=== PATIENT | female | born 1955 | race Caucasian/White ===

== ENCOUNTER 2018-08-27 11:16 | Emergency (ER) | payer BC ==
[2018-08-27 11:26] VITALS: BP 151/78; PULSE 75; TEMP 98.4; BMI 35.7
[2018-08-27] MEDS ORDERED: KETOROLAC TROMETHAMINE 60 MG/2 ML VIAL IM ONE (11:47)
--- NOTE | 2018-08-27 11:47 | PDOC ---
History of Present Illness - General Chief Complaint: Back Pain Stated Complaint: back pain Time Seen by Provider: 08/27/18 11:19 History Source: Patient Exam Limitations: No Limitations - History of Present Illness Initial Comments: 08/27/18 11:34 63 y/o female with right sided back pain that radiates down the right leg. Has been going to her chiropractor 3x this week with no improvement. No weakness or numbness. taking Mortin/Advil with little relief. Worse at night, feels fine during the day. No fall or trauma. No fever, chills, dyauria, hematuria or incontinence. Patient denies chest pain, SOB or leg pain. No weakness. Worse with movement. Started 1 week ago. Timing/Duration: 1 week Severity: mild Past History - Past Medical History Allergies/Adverse Reactions: Allergies Allergy/AdvReac Type Severity Reaction Status Date / Time No Known Allergies Allergy Verified 08/27/18 11:17 Home Medications: Ambulatory Orders Naproxen Sodium [Aleve] 220 mg PO DAILY PRN 11/07/15 Cyclobenzaprine HCl 10 mg PO TID #10 tablet 08/27/18 Anemia: Yes (1997) Asthma: No Cancer: No Cardiac Disorders: No CVA: No COPD: No CHF: No Dementia: No Diabetes: No GI Disorders: No Disorders: No HTN: No Hypercholesterolemia: No Liver Disease: No Seizures: No Thyroid Disease: No - Surgical History Abdominal Surgery: Yes (balta) Appendectomy: No Cardiac Surgery: No Cholecystectomy: No Lung Surgery: No Neurologic Surgery: No Orthopedic Surgery: Yes (RIGHT KNEE MENISCUS REPAIR) - Suicide/Smoking/Psychosocial Hx Smoking History: Never smoked Have you smoked in the past 12 months: No If you are a former smoker, when did you quit?: 2004 Information on smoking cessation initiated: No Hx Alcohol Use: No Drug/Substance Use Hx: No Substance Use Type: None Hx Substance Use Treatment: No Review of Systems - Review of Systems Able to Perform ROS?: Yes Is the patient limited Qatari proficient: No Constitutional: No: Chills, Fever Respiratory: No: Cough, Shortness of Breath Cardiac (ROS): No: Chest Pain ABD/GI: No: Nausea, Vomiting : No: Dysuria, Hematuria, Incontinence Musculoskeletal: Yes: Back Pain. No: Joint Pain All Other Systems: Reviewed and Negative *Physical Exam - Vital Signs Last Vital Signs Temp Pulse Resp BP Pulse Ox 98.4 F 75 20 151/78 98 08/27/18 11:17 08/27/18 11:17 08/27/18 11:17 08/27/18 11:17 08/27/18 11:17 - Physical Exam General Appearance: Yes: Nourished, Appropriately Dressed. No: Apparent Distress HEENT: positive: EOMI, ANISH, Normal ENT Inspection, Normal Voice Neck: positive: Trachea midline, Normal Thyroid, Supple. negative: Tender, Rigid Respiratory/Chest: positive: Lungs Clear, Normal Breath Sounds. negative: Chest Tender, Respiratory Distress Cardiovascular: positive: Regular Rhythm, Regular Rate, S1, S2. negative: Edema , JVD, Murmur Vascular Pulses: Femoral (R): 4+, Femoral (L): 4+, Carotid (R): 4+, Carotid (L) : 4+, Dorsalis-Pedis (R): 4+, Doralis-Pedis (L): 4+ Gastrointestinal/Abdominal: positive: Normal Bowel Sounds, Flat, Soft. negative : Tender, Organomegaly, Pulsatile Mass Lymphatic: negative: Adenopathy, Tenderness, Other Musculoskeletal: positive: Normal Inspection. negative: CVA Tenderness, Vertebral Tenderness (right lower paravertebral muscle with tenderness, no spinous process tenderness, full ROM) Extremity: positive: Normal Capillary Refill, Normal Inspection, Normal Range of Motion Integumentary: positive: Normal Color, Dry, Warm. 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, Fully Oriented, Alert, Normal Mood/ Affect, Normal Response, Motor Strength 5/5 (strength 5+/5 b/l in UE and LE, no focal deficits noted) ED Treatment Course - ADDITIONAL ORDERS Additional order review: 08/27/18 11:49 Right lower back pain appears to be sciatica Discussed MRI as out patient Toradol and Flexeril given in ER Will place on Medrol dose pack and Flexeril at home Pt is in agreement with plan *DC/Admit/Observation/Transfer Diagnosis at time of Disposition: Sciatica Qualifiers: Laterality: right Qualified Code(s): M54.31 - Sciatica, right side - Discharge Dispostion Disposition: HOME Condition at time of disposition: Good Decision to Admit order: No - Referrals - Patient Instructions Printed Discharge Instructions: DI for Back Pain With Sciatica Additional Instructions: Motrin, rest Flexeril 10 mg 3x/day as needed Medrol dose pack as directed MRI as out patient If worsen return to ER - Post Discharge Activity Forms/Work/School Notes: Back to Work
[2018-08-27] MEDS ORDERED: KETOROLAC TROMETHAMINE 60 MG/2 ML VIAL ONE (11:48)
[2018-08-27] MEDS ORDERED: CYCLOBENZAPRINE HCL 10 MG TABLET (FP) ONE (11:48)
[2018-08-27] MEDS ORDERED: CYCLOBENZAPRINE HCL 10 MG TABLET (FP) PO ONE (11:48)
== END 2018-08-27 12:03 | disposition home or self-care (01) ==
LOC: FER 11:16
PROC: 3E0233Z Introduction of Anti-inflammatory into Muscle, Percutaneous Approach (ICD-10-PCS; principal; 2018-08-27)
DX: M54.31 Sciatica, right side (principal)
CPT/HCPCS: 99282-25

== ENCOUNTER 2020-07-14 08:01 | Inpatient (IN) | payer BC ==
[2020-07-09 13:57] VITALS: BMI 35.9
[2020-07-14] MEDS ORDERED: PROPOFOL 20 ML ONE ×2 (08:52→12:00)
[2020-07-14] MEDS ORDERED: LIDOCAINE HCL/PF 2% SDV 5ML VIAL ONE (08:53)
[2020-07-14] MEDS ORDERED: MIDAZOLAM HCL 2 MG/2 ML SINGLE DOSE VIAL ONE ×3 (08:56→10:02)
[2020-07-14] MEDS ORDERED: BUPIVACAINE LIPOSOME/PF (EXPAREL) 266 MG/20 ML VIAL ONE (09:18)
[2020-07-14] MEDS ORDERED: SODIUM CHLORIDE 0.9% P/F 10 ML VIAL IJ ONE (09:18)
[2020-07-14] MEDS ORDERED: VANCOMYCIN 1,000 MG VIAL (RESTRICTED TO ID ONLY) ONE (09:26)
[2020-07-14] MEDS ORDERED: ceFAZolin SODIUM 1 GM VIAL ONE (10:22)
[2020-07-14] MEDS ORDERED: TRANEXAMIC ACID 1000 MG/10 ML VIAL ONE ×2 (10:26→11:51)
[2020-07-14] MEDS ORDERED: DEXAMETHASONE SOD PHOSPHATE 4 MG/1 ML VIAL ONE ×2 (10:33→12:23)
[2020-07-14] MEDS ORDERED: ONDANSETRON 4 MG/2 ML VIAL ONE ×2 (10:33→12:23)
[2020-07-14] MEDS ORDERED: ONDANSETRON 4 MG/2 ML VIAL IVPUSH PRN ×2 (11:14→12:41)
[2020-07-14] MEDS ORDERED: BUPIVICAINE 0.25%/MORPH PF/KETOROLAC - 51ML DISP.SYRINGE IA ONE ×2 (11:41→11:59)
[2020-07-14] MEDS ORDERED: VANCOMYCIN 1,000 MG VIAL (RESTRICTED TO ID ONLY) IVPB ONE (11:59)
[2020-07-14] MEDS ORDERED: KETOROLAC TROMETHAMINE 30 MG/1 ML VIAL ONE (12:23)
[2020-07-14] MEDS ORDERED: MAG HYDROX/AL HYDROX/SIMETH 30 ML UNIT-DOSE CUP PO PRN (12:41)
[2020-07-14] MEDS ORDERED: LACTATED RINGERS SOLUTION 1,000 ML IV SCH (12:45)
[2020-07-14] MEDS ORDERED: ACETAMINOPHEN 325 MG TABLET (FP) ONE (13:34)
[2020-07-14] MEDS: ACETAMINOPHEN 325 MG TABLET (FP) PO SCH ×2 (14:32→17:20)
[2020-07-14] MEDS: oxyCODONE HCL 5 MG TABLET PO PRN ×3 (16:32→21:26)
[2020-07-14] MEDS: CEFAZOLIN 2 GM/D5W 2 GM/50 ML ML IVPB SCH (18:00)
[2020-07-14] MEDS: GABAPENTIN 300 MG CAPSULE PO SCH (21:26)
[2020-07-14] MEDS: oxyCODONE HCL 10 MG SUSTAINED ACTING TABLET PO SCH (21:26)
[2020-07-14] MEDS: SENNOSIDES/DOCUSATE COMBO (SENNA PLUS) TABLET (UD) PO SCH (21:26)
[2020-07-15] MEDS: CEFAZOLIN 2 GM/D5W 2 GM/50 ML ML IVPB SCH ×2 (01:56→09:23)
[2020-07-15] MEDS: ACETAMINOPHEN 325 MG TABLET (FP) PO SCH ×5 (06:53→23:26)
[2020-07-15 08:12] LABS: HEMATOCRIT 38.9 % (32.4-45.2); MCH 29.4 pg (25.7-33.7); MCHC 33.4 g/dl (32.0-36.0); MEAN CELL VOLUME 87.9 fl (80-96); MEAN PLT VOLUME 8.6 fl (7.5-11.1); PLATELET COUNT 248 K/MM3 (134-434); RBC 4.43 M/mm3 (3.60-5.2); RDW 11.6 % (11.6-15.6); WHITE BLOOD COUNT 11.7 K/mm3 (4.0-10.8)
[2020-07-15 08:28] LABS: CALCIUM 9.5 mg/dl (8.5-10); CREATININE 1.2 mg/dl (0.55-1.3); POTASSIUM 4.1 mmol/L (3.5-5.1)
[2020-07-15] MEDS: ASPIRIN 325 MG TABLET PO SCH ×2 (09:23→21:00)
[2020-07-15] MEDS: MULTIVITAMINS (DAILY MVI) TABLET (FP) PO SCH (09:23)
[2020-07-15] MEDS: SENNOSIDES/DOCUSATE COMBO (SENNA PLUS) TABLET (UD) PO SCH ×2 (09:23→23:26)
[2020-07-15] MEDS: PANTOPRAZOLE 40 MG TABLET PO SCH (09:23)
[2020-07-15] MEDS: oxyCODONE HCL 10 MG SUSTAINED ACTING TABLET PO SCH ×2 (09:23→23:25)
[2020-07-15] MEDS: GABAPENTIN 300 MG CAPSULE PO SCH ×2 (09:23→21:00)
[2020-07-15] MEDS ORDERED: PT OWN MED DRAWER 7, Y5N ONE (14:38)
[2020-07-15] MEDS: oxyCODONE HCL 5 MG TABLET PO PRN (20:39)
[2020-07-16 06:12] VITALS: TEMP 97.9
[2020-07-16] MEDS: oxyCODONE HCL 5 MG TABLET PO PRN ×2 (06:53→11:52)
[2020-07-16] MEDS: ACETAMINOPHEN 325 MG TABLET (FP) PO SCH ×2 (06:53→11:51)
[2020-07-16 08:12] LABS: HEMATOCRIT 33.3 % (32.4-45.2); HEMOGLOBIN 11.4 GM/dl (10.7-15.3); MCHC 34.3 g/dl (32.0-36.0); MEAN CELL VOLUME 87.4 fl (80-96); MEAN PLT VOLUME 8.5 fl (7.5-11.1); PLATELET COUNT 181 K/MM3 (134-434); RBC 3.81 M/mm3 (3.60-5.2); RDW 12.1 % (11.6-15.6); WHITE BLOOD COUNT 7.2 K/mm3 (4.0-10.8)
[2020-07-16] MEDS: GABAPENTIN 300 MG CAPSULE PO SCH (09:28)
[2020-07-16] MEDS: SENNOSIDES/DOCUSATE COMBO (SENNA PLUS) TABLET (UD) PO SCH (09:28)
[2020-07-16] MEDS: PANTOPRAZOLE 40 MG TABLET PO SCH (09:28)
[2020-07-16] MEDS: MULTIVITAMINS (DAILY MVI) TABLET (FP) PO SCH (09:28)
[2020-07-16] MEDS: ASPIRIN 325 MG TABLET PO SCH (09:29)
[2020-07-16] MEDS: oxyCODONE HCL 10 MG SUSTAINED ACTING TABLET PO SCH (09:31)
[2020-07-16] MEDS ORDERED: PT OWN MED DRAWER 7, Y5N ONE (11:24)
[2020-07-16 12:09] VITALS: BP 119/63; PULSE 77
== END 2020-07-16 12:39 | disposition home or self-care (01) | DRG 470 ==
LOC: FM/S 08:01
PROVIDERS: ADMIT Orthopaedic Surgery Sports Medicine; ATTEND Nurse Practitioner Acute Care
PROC: 8E0Y0CZ Robotic Assisted Procedure of Lower Extremity, Open Approach (ICD-10-PCS; 2020-07-14)
PROC: 0SRC0JA Replacement of Right Knee Joint with Synthetic Substitute, Uncemented, Open Approach (ICD-10-PCS; principal; 2020-07-14 10:43)
DX: M17.11 Unilateral primary osteoarthritis, right knee (principal); I10 Essential (primary) hypertension; E78.5 Hyperlipidemia, unspecified
CPT/HCPCS: 36415; 73560-TC-RT-FY; 80048; 85027; 88305-TC; 88311-TC; 94760; 97010-GP; 97116-GP; 97163-GP

== ENCOUNTER 2021-03-23 09:25 | Day surgery (SDC) | payer BC, OTHER ==
[2021-03-20 11:59] VITALS: BMI 34.6
[~2021-03-23 09:25] MED LIST: LACTATED RINGERS SOLUTION 1,000 ML IV SCH; MAG HYDROX/AL HYDROX/SIMETH 30 ML UNIT-DOSE CUP PO PRN; ONDANSETRON 4 MG/2 ML VIAL IVPUSH PRN
[2021-03-23] MEDS ORDERED: BUPIVACAINE HCL/PF 0.5% (5MG/ML) 10 ML VIAL ONE (10:33)
[2021-03-23] MEDS ORDERED: SODIUM CHLORIDE 0.9% P/F 10 ML VIAL IJ ONE (10:33)
[2021-03-23] MEDS ORDERED: BUPIVACAINE LIPOSOME/PF (EXPAREL) 266 MG/20 ML VIAL ONE (10:33)
[2021-03-23] MEDS ORDERED: MIDAZOLAM HCL 2 MG/2 ML SINGLE DOSE VIAL ONE ×2 (10:33→11:45)
[2021-03-23] MEDS ORDERED: TRANEXAMIC ACID 1000 MG/10 ML VIAL ONE (11:45)
[2021-03-23] MEDS ORDERED: VANCOMYCIN 1,000 MG VIAL (RESTRICTED TO ID ONLY) ONE (11:57)
[2021-03-23] MEDS ORDERED: BUPIVICAINE 0.25%/MORPH PF/KETOROLAC - 51ML DISP.SYRINGE IA ONE ×3 (12:26→14:50)
[2021-03-23] MEDS ORDERED: PROPOFOL 20 ML ONE ×4 (13:19→15:02)
[2021-03-23] MEDS ORDERED: BACITRACIN 15 GM TUBE TOPICAL OINTMENT ONE (13:25)
[2021-03-23 14:48] LABS: HEMATOCRIT 36.8 % (32.4-45.2); HEMOGLOBIN 12.3 GM/dl (10.7-15.3); MCH 28.7 pg (25.7-33.7); MCHC 33.4 g/dl (32.0-36.0); MEAN CELL VOLUME 86.1 fl (80-96); MEAN PLT VOLUME 8.3 fl (7.5-11.1); PLATELET COUNT 193 10^3/uL (134-434); RBC 4.27 M/mm3 (3.60-5.2); RDW 11.8 % (11.6-15.6); WHITE BLOOD COUNT 5.6 K/mm3 (4.0-10.8)
[2021-03-23] MEDS ORDERED: oxyCODONE HCL 5 MG TABLET PO PRN (15:42)
[2021-03-23] MEDS ORDERED: ONDANSETRON 4 MG/2 ML VIAL IVPUSH PRN (15:42)
[2021-03-23] MEDS: ACETAMINOPHEN 1000 MG/100 ML VIAL IVPB SCH ×2 (15:45→21:06)
[2021-03-23] MEDS: MULTIVITAMINS (DAILY MVI) TABLET (FP) PO SCH (17:00)
[2021-03-23] MEDS: GABAPENTIN 300 MG CAPSULE PO SCH ×2 (17:00→21:09)
[2021-03-23] MEDS: PANTOPRAZOLE 40 MG TABLET PO SCH (17:00)
[2021-03-23] MEDS ORDERED: ceFAZolin SODIUM 1 GM VIAL ONE (17:30)
[2021-03-23] MEDS ORDERED: DEXTROSE 5%-WATER - 50 ML IVPB ONE (17:30)
[2021-03-23] MEDS: oxyCODONE HCL 5 MG TABLET PO PRN (18:30)
[2021-03-23] MEDS: CEFAZOLIN 2 GM in DEXTROSE 5%-WATER - 50 ML IVPB SCH (18:31)
[2021-03-23] MEDS: SENNOSIDES/DOCUSATE COMBO (SENNA PLUS) TABLET (UD) PO SCH (21:09)
[2021-03-23] MEDS: oxyCODONE HCL 10 MG SUSTAINED ACTING TABLET PO SCH (21:10)
[2021-03-24] MEDS: oxyCODONE HCL 5 MG TABLET PO PRN ×4 (01:43→17:49)
[2021-03-24] MEDS ORDERED: ceFAZolin SODIUM 1 GM VIAL ONE ×2 (02:16→11:17)
[2021-03-24] MEDS ORDERED: DEXTROSE 5%-WATER - 50 ML IVPB ONE ×2 (02:17→11:18)
[2021-03-24] MEDS: CEFAZOLIN 2 GM in DEXTROSE 5%-WATER - 50 ML IVPB SCH ×2 (02:22→11:29)
[2021-03-24] MEDS: ACETAMINOPHEN 1000 MG/100 ML VIAL IVPB SCH ×2 (02:59→09:45)
[2021-03-24 08:16] LABS: HEMATOCRIT 35.5 % (32.4-45.2); HEMOGLOBIN 11.2 GM/dl (10.7-15.3); MCHC 31.7 g/dl (32.0-36.0); MEAN CELL VOLUME 88.3 fl (80-96); MEAN PLT VOLUME 8.6 fl (7.5-11.1); PLATELET COUNT 211 10^3/uL (134-434); RBC 4.02 M/mm3 (3.60-5.2); RDW 11.9 % (11.6-15.6); WHITE BLOOD COUNT 9.9 K/mm3 (4.0-10.8)
[2021-03-24 08:22] LABS: CALCIUM 8.9 mg/dl (8.5-10); CREATININE 0.9 mg/dl (0.55-1.3)
[2021-03-24] MEDS: GABAPENTIN 300 MG CAPSULE PO SCH ×2 (09:47→21:13)
[2021-03-24] MEDS: SENNOSIDES/DOCUSATE COMBO (SENNA PLUS) TABLET (UD) PO SCH ×2 (09:47→21:13)
[2021-03-24] MEDS: ASPIRIN 325 MG TABLET PO SCH ×2 (09:47→21:13)
[2021-03-24] MEDS: PANTOPRAZOLE 40 MG TABLET PO SCH (09:47)
[2021-03-24] MEDS: oxyCODONE HCL 10 MG SUSTAINED ACTING TABLET PO SCH ×2 (09:47→21:13)
[2021-03-24] MEDS: MULTIVITAMINS (DAILY MVI) TABLET (FP) PO SCH (09:48)
[2021-03-25 06:00] VITALS: TEMP 98.3
[2021-03-25 08:19] LABS: HEMOGLOBIN 10.2 GM/dl (10.7-15.3); MCHC 31.9 g/dl (32.0-36.0); MEAN CELL VOLUME 87.9 fl (80-96); MEAN PLT VOLUME 8.9 fl (7.5-11.1); PLATELET COUNT 175 10^3/uL (134-434); RBC 3.64 M/mm3 (3.60-5.2); WHITE BLOOD COUNT 8.8 K/mm3 (4.0-10.8)
[2021-03-25] MEDS: ASPIRIN 325 MG TABLET PO SCH (09:07)
[2021-03-25] MEDS: oxyCODONE HCL 10 MG SUSTAINED ACTING TABLET PO SCH (09:07)
[2021-03-25] MEDS: SENNOSIDES/DOCUSATE COMBO (SENNA PLUS) TABLET (UD) PO SCH (09:07)
[2021-03-25] MEDS: GABAPENTIN 300 MG CAPSULE PO SCH (09:09)
[2021-03-25] MEDS: MULTIVITAMINS (DAILY MVI) TABLET (FP) PO SCH (09:10)
[2021-03-25] MEDS: PANTOPRAZOLE 40 MG TABLET PO SCH (09:10)
[2021-03-25 09:22] VITALS: PULSE 92
[2021-03-25 14:40] VITALS: BP 120/65
== END 2021-03-25 14:43 | disposition home or self-care (01) ==
LOC: SUATTDRO 09:25 → FASUSAT 09:25 → FM/S 17:03 → FASUSAT 03-25 14:43
PROVIDERS: ATTEND Nurse Practitioner Acute Care
PROC: 8E0YXBZ Computer Assisted Procedure of Lower Extremity (ICD-10-PCS; 2021-03-23)
PROC: 8E0Y0CZ Robotic Assisted Procedure of Lower Extremity, Open Approach (ICD-10-PCS; 2021-03-23)
PROC: 0SRD0J9 Replacement of Left Knee Joint with Synthetic Substitute, Cemented, Open Approach (ICD-10-PCS; principal; 2021-03-23 12:45)
DX: M17.12 Unilateral primary osteoarthritis, left knee (principal); I10 Essential (primary) hypertension; E78.5 Hyperlipidemia, unspecified
CPT/HCPCS: 20985; 27447; C1776; S2900; 36415; 73560-TC-LT-FY; 80048; 85027; 88305-TC; 88311-TC; 94760; 97010-GP; 97116-GP; 97162-GP; J0131

== ENCOUNTER 2022-10-01 04:20 | Day surgery (SDC) | payer BC ==
[2022-09-30 10:06] VITALS: BMI 34.4
[2022-10-01] MEDS ORDERED: TRIAMCINOLONE ACET 40MG/1ML VIAL ONE (07:39)
[2022-10-01] MEDS ORDERED: BUPIVACAINE HCL/PF 0.5% (5MG/ML) 10 ML VIAL ONE (07:39)
[2022-10-01] MEDS ORDERED: LIDOCAINE HCL/PF 1% SDV 5ML VIAL ONE (07:39)
[2022-10-01] MEDS ORDERED: BUPIVACAINE HCL/PF 0.5% (5MG/ML) 10 ML VIAL IJ ONE (09:55)
[2022-10-01 11:02] VITALS: RESP 20; TEMP 98.7
[2022-10-01 11:59] VITALS: BP 135/75; PULSE 64
== END 2022-10-01 11:45 | disposition home or self-care (01) ==
LOC: JASU-SURG 04:20
PROVIDERS: ATTEND Pain Medicine Pain Medicine
PROC: 3E0T3BZ Introduction of Anesthetic Agent into Peripheral Nerves and Plexi, Percutaneous Approach (ICD-10-PCS; principal; 2022-10-01 10:15)
DX: M47.812 Spondylosis without myelopathy or radiculopathy, cervical region (principal)
CPT/HCPCS: 76000-TC-FY

== ENCOUNTER 2022-10-22 04:11 | Day surgery (SDC) | payer BC ==
[2022-10-20 14:17] VITALS: BMI 34.4
[2022-10-22] MEDS ORDERED: BUPIVACAINE HCL/PF 0.5% (5MG/ML) 10 ML VIAL ONE (07:21)
[2022-10-22] MEDS ORDERED: LIDOCAINE HCL/PF 1% SDV 5ML VIAL ONE (07:21)
[2022-10-22] MEDS ORDERED: ACETAMINOPHEN 500 MG TABLET (FP) PO PRN (11:12)
[2022-10-22 15:08] VITALS: RESP 18; TEMP 97.6
[2022-10-22 15:11] VITALS: BP 150/70; PULSE 68
[2022-11-05] MEDS ORDERED: ACETAMINOPHEN 500 MG TABLET (FP) PO PRN (14:05)
== END 2022-10-22 13:50 | disposition home or self-care (01) ==
LOC: JASU-SURG 04:11
PROVIDERS: ATTEND Pain Medicine Pain Medicine
PROC: 3E0T33Z Introduction of Anti-inflammatory into Peripheral Nerves and Plexi, Percutaneous Approach (ICD-10-PCS; 2022-10-22)
PROC: 3E0T3BZ Introduction of Anesthetic Agent into Peripheral Nerves and Plexi, Percutaneous Approach (ICD-10-PCS; principal; 2022-10-22 13:16)
DX: M47.812 Spondylosis without myelopathy or radiculopathy, cervical region (principal)
CPT/HCPCS: 76000-TC-FY

== ENCOUNTER 2022-11-05 05:36 | Day surgery (SDC) | payer BC ==
[2022-11-04 15:56] VITALS: BMI 34.4
[~2022-11-05 05:36] MED LIST changes: +BUPIVACAINE HCL/PF 0.5% (5MG/ML) 10 ML VIAL IJ ONE; +DEXAMETHASONE SOD PHOSPHATE 10 MG/1 ML VIAL IM ONE; -LACTATED RINGERS SOLUTION 1,000 ML IV SCH; +LIDOCAINE HCL 1% PRESERVATIVE FREE - 30ML VIAL IJ ONE; +LIDOCAINE HCL/PF 2% SDV 5ML VIAL INF ONE; -MAG HYDROX/AL HYDROX/SIMETH 30 ML UNIT-DOSE CUP PO PRN; -ONDANSETRON 4 MG/2 ML VIAL IVPUSH PRN
[2022-11-05] MEDS ORDERED: ACETAMINOPHEN 500 MG TABLET (FP) PO PRN (08:27)
[2022-11-05 10:14] VITALS: RESP 20
[2022-11-05] MEDS ORDERED: LIDOCAINE HCL/PF 2% SDV 5ML VIAL INF ONE (11:43)
[2022-11-05] MEDS ORDERED: BUPIVACAINE HCL/PF 0.5% (5MG/ML) 10 ML VIAL IJ ONE (11:43)
[2022-11-05] MEDS ORDERED: DEXAMETHASONE SOD PHOSPHATE 10 MG/1 ML VIAL IM ONE (11:43)
[2022-11-05 12:34] VITALS: BP 157/85; PULSE 66; TEMP 97.8
== END 2022-11-05 12:31 | disposition home or self-care (01) ==
LOC: JASU-SURG 05:36
PROVIDERS: ATTEND Pain Medicine Pain Medicine
PROC: 01513ZZ Destruction of Cervical Nerve, Percutaneous Approach (ICD-10-PCS; principal; 2022-11-05 14:30)
DX: M47.812 Spondylosis without myelopathy or radiculopathy, cervical region (principal)
CPT/HCPCS: 76000-TC-FY; J1100

== ENCOUNTER 2022-11-30 04:08 | Day surgery (SDC) | payer BC ==
[2022-11-26 15:24] VITALS: BMI 34.4
[2022-11-30] MEDS ORDERED: BUPIVACAINE HCL/PF 0.5% (5MG/ML) 10 ML VIAL ONE (07:09)
[2022-11-30] MEDS ORDERED: BUPIVACAINE HCL/PF 0.75% 10 ML VIAL ONE (07:09)
[2022-11-30] MEDS ORDERED: BUPIVACAINE HCL/PF 0.25% (2.5MG/ML) 10 ML VIAL ONE (07:09)
[2022-11-30] MEDS ORDERED: DEXAMETHASONE SOD PHOSPHATE 10 MG/1 ML VIAL ONE (07:10)
[2022-11-30 09:38] VITALS: RESP 18
[2022-11-30 10:48] VITALS: BP 149/81; PULSE 79; TEMP 98
[2022-11-30] MEDS ORDERED: ACETAMINOPHEN 500 MG TABLET (FP) PO PRN (16:21)
== END 2022-11-30 10:30 | disposition home or self-care (01) ==
LOC: JASU-SURG 04:08
PROVIDERS: ATTEND Pain Medicine Pain Medicine
PROC: 01513ZZ Destruction of Cervical Nerve, Percutaneous Approach (ICD-10-PCS; principal; 2022-11-30 08:00)
DX: M47.812 Spondylosis without myelopathy or radiculopathy, cervical region (principal)
CPT/HCPCS: 76000-TC-FY; J1100